=== PATIENT | male | born 1965 | race Caucasian/White ===

== ENCOUNTER 2022-11-15 09:43 | Outpatient (CLI) | payer BC, SELFPAY ==
--- NOTE | ~2022-11-15 | MR_ITS ---
MRI of the cervical spine Clinical History: Headache Technique: Axial T2-weighted and gradient images, and sagittal T1-weighted, T2-weighted, and STIR mirtha ges were acquired. Following intravenous administration of 20 cc MultiHance gadolinium, T1-weighted f at-sat imaging was performed in the axial and sagittal planes. Findings: There is no fracture or subluxation of the cervical spine. Vertebral bodies maintain normal height and alignment. No suspicious marrow signal abnormality seen. At C2-C3, there is no disc bulge or herniation. No spinal canal stenosis, cord compression, or neural foraminal narrowing. At C3-C4, there is no disc bulge or herniation. No spinal canal stenosis, cord compression, or neural foraminal narrowing. At C4-C5, there is minimal disc bulge. No spinal canal stenosis, cord compression, or neural foramina l narrowing. At C5-C6, there is disc osteophyte complex, with mild canal stenosis and minimal flattening the ventr al cord. There is probable mild right neural foraminal narrowing. Left neural foramen preserved. At C6-C7, there is no significant disc bulge or herniation. No spinal canal stenosis, cord compressio n, or neural foraminal narrowing. No abnormal signal seen in the spinal cord. Paravertebral soft tissues are unremarkable. No abnormal postcontrast enhancement identified. Impression: [id number] degenerative spondylosis at C5-C6, as detailed above. Reviewed, dictated and finalized at [facility]. Impression: [id number] degenerative spondylosis at C5-C6, as detailed above.
== END 2022-11-15 09:44 | disposition home or self-care (01) ==
LOC: CHSIMG 09:45
PROVIDERS: PCP Family Medicine; Visit Provider Family Medicine
DX: R51.9 Headache, unspecified (principal); M43.02 Spondylolysis, cervical region
CPT/HCPCS: 72156; A9577